=== PATIENT | male | born 1955 | race Caucasian/White ===

== ENCOUNTER 2020-04-05 16:04 | Inpatient (IN) | payer MEDICARE, OTHER ==
[2020-04-05] MEDS ORDERED: Acetaminophen 325 MG Tab PO PRN (22:40)
[2020-04-05] MEDS ORDERED: Non-Formulary Medication 1 Each (Dulaglutide [Trulicity] 1.5 MG) SQ SCH (22:45)
[2020-04-06] MEDS: glipiZIDE 5 MG Tab.ER PO SCH (08:27)
[2020-04-06] MEDS: PARoxetine 20 MG Tab PO SCH (08:28)
[2020-04-06] MEDS: atorvaSTATin 10 MG Tab PO SCH (08:29)
[2020-04-06] MEDS: Lisinopril 5 MG Tab PO SCH (08:29)
[2020-04-06] MEDS: Dexamethasone 4 MG Tab PO SCH (08:31)
[2020-04-06] MEDS: metFORMIN 500 MG Tab PO SCH ×2 (08:32→19:23)
[2020-04-06] MEDS ORDERED: metFORMIN 500 MG Tab.ER ONE (08:38)
[2020-04-06] MEDS ORDERED: metFORMIN 500 MG Tab ONE (08:47)
[2020-04-06] MEDS ORDERED: Tuberculin, PPD 5 Units/0.1 ML 1 ML MDV IDERM ONE (10:24)
[2020-04-06] MEDS ORDERED: Acetaminophen 325 MG Tab PO PRN (12:04)
--- NOTE | 2020-04-06 12:30 | PCM.HP.2 ---
H&P History of Present Illness - General Date of Service: 04/06/20 Admit Problem/Dx: Admission Diagnosis/Problem Admission Diagnosis/Problem Weakness - History of Present Illness Initial Comments - Free Text/Narative: pt admitted to [facility] for swingbed status after admission in [place], [place] on for diagnosis of covid. review of [facility] admission shows pt has significant deconditioning while inpt. pt recieved remdesivir and steroids at [facility] as well. pt states he feels much improved from peak of symptoms but still weak and looks forward to PT and OT and discharge home when able. pt states intermittent SOB with exertion. denies fever, chills, nausea, vomiting, headache, pain. medical history significant for diabetes, PE currently on warfarin for anticoagulation, CKD, sleep apnea, depression - Related Data Allergies/Adverse Reactions: Allergies Allergy/AdvReac Type Severity Reaction Status Date / Time No Known Allergies Allergy Verified 05/13/19 10:09 Home Medications: Home Meds Brimonidine [Alphagan 0.2% Ophth Soln] 1 drop TOP Q12H 09/01/15 [History] Warfarin [Coumadin] 1 tab PO ASDIRECTED 09/01/15 [History] metFORMIN HCl [Glucophage] 1,000 mg PO BID 09/01/15 [History] metroNIDAZOLE [metroNIDAZOLE 0.75% Cream] 1 dose TOP ASDIRECTED 09/01/15 [History] raNITIdine HCL [Zantac 75] 75 mg PO ASDIRECTED PRN 09/01/15 [History] Lisinopril 1 tab PO DAILY 07/11/17 [History] PARoxetine [Paxil] 1 tab PO DAILY 07/11/17 [History] atorvaSTATin [Lipitor] 1 tab PO DAILY 07/11/17 [History] glipiZIDE [Glipizide ER] 2 tab PO DAILY 07/11/17 [History] Dulaglutide [Trulicity] 1.5 mg SQ WEEKLY 05/13/19 [History] Meloxicam [Mobic] 15 mg PO DAILY PRN #10 tablet 05/13/19 [Rx] Acetaminophen [Tylenol] 1,000 mg PO Q6H PRN 04/05/20 [History] Pantoprazole Sodium [Protonix] 20 mg PO DAILY 04/05/20 [History] dexAMETHasone [Dexamethasone] 6 mg PO DAILY 04/05/20 [History] Past Medical History HEENT History: Reports: Glaucoma, Impaired Vision Respiratory History: Reports: PE, Sleep Apnea Other Respiratory History: cpap Gastrointestinal History: Reports: GERD Musculoskeletal History: Reports: Back Pain, Chronic, Other (See Below) Other Musculoskeletal History: L side face fx r leg fx Neurological History: Reports: Brain Injury, Concussion, Head Trauma Psychiatric History: Reports: Mood Swings Endocrine/Metabolic History: Reports: Diabetes, Type II, Obesity/BMI 30+ Hematologic History: Reports: Anticoagulation Therapy Dermatologic History: Reports: Other (See Below) Other Dermatologic History: Brown spot r anglican - Infectious Disease History Infectious Disease History: Reports: Chicken Pox, Other (See Below) Other Infectious Disease History: COVID-19 - Past Surgical History Head Surgeries/Procedures: Reports: None HEENT Surgical History: Reports: None Respiratory Surgical History: Reports: None GI Surgical History: Reports: Esophageal Dilatation Endocrine Surgical History: Reports: None Neurological Surgical History: Reports: Other (See Below) Musculoskeletal Surgical History: Reports: Knee Replacement, Other (See Below) Other Musculoskeletal Surgeries/Procedures:: surgery to right foot Dermatological Surgical History: Reports: None Social & Family History - Tobacco Use Tobacco Use Status *Q: Never Tobacco User Second Hand Smoke Exposure: No - Caffeine Use Caffeine Use: Reports: None - Recreational Drug Use Recreational Drug Use: No H&P Review of Systems - Review of Systems: Review Of Systems: Comprehensive ROS is negative, except as noted in HPI. Exam - Exam Exam: See Below - Vital Signs Vital Signs: Last Vital Signs Temp 95.6 F L 04/06/20 08:00 Pulse 93 04/06/20 08:00 Resp 20 04/06/20 08:00 BP 142/97 H 04/06/20 08:29 Pulse Ox 99 04/06/20 08:00 Weight: 200 lb - Exam Quality Assessment: Supplemental Oxygen General: Alert, Oriented, Cooperative HEENT: PERRLA, Conjunctiva Clear, Pupils Reactive Lungs: Clear to Auscultation, Normal Respiratory Effort Cardiovascular: Regular Rate, Regular Rhythm, Normal S1, Normal S2 Back Exam: Normal Inspection, Full Range of Motion Extremities: Normal Inspection, Normal Range of Motion, Non-Tender, No Pedal Edema Peripheral Pulses: 2+: Radial (L), Radial (R), Dorsalis Pedis (L), Dorsalis Pedis (R) Skin: Warm, Dry, Intact Neuro Extensive - Mental Status: Alert, Oriented x3, Normal Mood/Affect, Normal Cognition, Memory Intact - Patient Data Lab Results Last 24 hrs: Laboratory Results - last 24 hr 04/06/20 Range/Units 07:22 POC Glucose 222 H (74-110) mg/dL Sepsis Event Note - Evaluation Sepsis Screening Result: No Definite Risk - Focused Exam Vital Signs: Vital Signs Temp Pulse Pulse Resp BP BP BP 04/06/20 08:29 142/97 H 04/06/20 08:00 95.6 F L 93 20 142/97 H 04/06/20 04:00 97.5 F 90 20 122/82 Pulse Ox 04/06/20 08:29 04/06/20 08:00 99 04/06/20 04:00 96 - Problem List (1) COVID-19 SNOMED Code(s): 192247569 ICD Code: U07.1 - COVID-19 Status: Acute Current Visit: Yes (2) Physical deconditioning SNOMED Code(s): 44009608963828 ICD Code: R53.81 - OTHER MALAISE Status: Acute Current Visit: Yes (3) Diabetes SNOMED Code(s): 68832579 ICD Code: E11.9 - TYPE 2 DIABETES MELLITUS WITHOUT COMPLICATIONS Status: Acute Current Visit: Yes Qualifiers: Diabetes mellitus type: type 2 Diabetes mellitus buttermaker continuous churn insulin use: with buttermaker continuous churn use Diabetes mellitus complication status: without complication Qualified Code(s): E11.9 - Type 2 diabetes mellitus without complications; Z79.4 - intermediate (current) use of insulin Problem List Initiated/Reviewed/Updated: Yes Orders Last 24hrs: Active Orders 24 hr Category Date Time Status Admission Diagnosis [ADT] Routine ADT 04/05/20 22:18 Active Patient Status [ADT] Routine ADT 04/05/20 22:32 Active Ambulate [RC] QSHIFT Care 04/05/20 22:32 Active Antiembolic Devices [RC] .Routine Care 04/05/20 22:37 Active Blood Glucose Check, Bedside [RC] TIDMEALS Care 04/05/20 22:37 Active May Shower [RC] ASDIRECTED Care 04/05/20 22:32 Active Oxygen Therapy [RC] DAILY Care 04/05/20 22:32 Active Up With Assistance [RC] ASDIRECTED Care 04/05/20 22:32 Active VTE/DVT Education [RC] Per Unit Routine Care 04/05/20 22:32 Active Vital Signs [RC] Care 04/05/20 22:32 Active CULTURE MRSA SURVEY [RM] Routine Lab 04/06/20 09:15 Received Acetaminophen [TylenoL] Med 04/06/20 12:04 Active 650 mg PO Q4H PRN Dulaglutide [Trulicity] Med 04/05/20 22:45 Pending 1.5 mg SQ WEEKLY PARoxetine [Paxil] Med 04/06/20 08:00 Active 10 mg PO DAILY Warfarin [Coumadin] Med 04/06/20 18:00 Active 5 mg PO DAILY@1800 atorvaSTATin [Lipitor] Med 04/06/20 08:00 Active 10 mg PO DAILY dexAMETHasone Med 04/06/20 08:00 Active 6 mg PO DAILY glipiZIDE [Glucotrol XL] Med 04/06/20 08:00 Active 20 mg PO DAILY lisinopriL [Prinivil] Med 04/06/20 08:00 Active 2.5 mg PO DAILY metFORMIN [Glucophage] Med 04/06/20 08:00 Active 1,000 mg PO BID Antiembolic Hose [OM.PC] Per Unit Routine Oth 04/05/20 22:34 Ordered Resuscitation Status Routine Resus Stat 04/05/20 22:32 Ordered Medication Orders Acetaminophen (Tylenol) 650 mg PO Q4H PRN PRN Reason: Pain Atorvastatin Calcium (Lipitor) 10 mg PO DAILY [facility] Last Admin: 04/06/20 08:29 Dose: 10 mg Documented by: EMA Dexamethasone (Dexamethasone) 6 mg PO DAILY [facility] Last Admin: 04/06/20 08:31 Dose: 6 mg Documented by: EMA Glipizide (Glucotrol Xl) 20 mg PO DAILY [facility] Last Admin: 04/06/20 08:27 Dose: 20 mg Documented by: EMA Lisinopril (Prinivil) 2.5 mg PO DAILY [facility] Last Admin: 04/06/20 08:29 Dose: 2.5 mg Documented by: EMA Metformin HCl (Glucophage) 1,000 mg PO BID [facility] Last Admin: 04/06/20 08:32 Dose: 1,000 mg Documented by: EMA Non-Formulary Medication (Dulaglutide [Trulicity]) 1.5 mg SQ WEEKLY [facility] Paroxetine HCl (Paxil) 10 mg PO DAILY [facility] Last Admin: 04/06/20 08:28 Dose: 10 mg Documented by: EMA Warfarin Sodium (Coumadin) 5 mg PO DAILY@1800 [facility] Stop: 04/07/20 18:01 Assessment/Plan Comment:: plan: PT OT for deconditioned state O2 as needed continue decadron through weekend - Mortality Measure Prognosis:: Good
[2020-04-06] MEDS ORDERED: Insulin Aspart 100 Units/ML 3 ML Pen SUBCUT ONE ×2 (16:51→18:10)
[2020-04-06] MEDS ORDERED: Warfarin 5 MG Tab PO SCH (18:00)
[2020-04-06] MEDS ORDERED: Glucagon,Human Recombinant 1 MG Vial IM PRN (18:23)
[2020-04-06] MEDS ORDERED: 50% Dextrose in Water 50 ML Syringe IVPUSH PRN (18:23)
[2020-04-06] MEDS ORDERED: Insulin NPH/Insulin Regular,Human 70-30 100 Units/ML 10 ML Vial SUBCUT ONE (20:36)
[2020-04-07] MEDS: glipiZIDE 5 MG Tab.ER PO SCH (08:22)
[2020-04-07] MEDS: atorvaSTATin 10 MG Tab PO SCH (08:22)
[2020-04-07] MEDS: metFORMIN 500 MG Tab PO SCH ×2 (08:23→19:58)
[2020-04-07] MEDS: PARoxetine 20 MG Tab PO SCH (08:23)
[2020-04-07] MEDS: Lisinopril 5 MG Tab PO SCH (08:35)
[2020-04-07] MEDS: Dexamethasone 4 MG Tab PO SCH (12:19)
[2020-04-07] MEDS ORDERED: Insulin Aspart 100 Units/ML 3 ML Pen SUBCUT ONE ×2 (17:20→20:53)
[2020-04-07] MEDS ORDERED: Glucagon,Human Recombinant 1 MG Vial IM PRN (17:35)
[2020-04-07] MEDS ORDERED: 50% Dextrose in Water 50 ML Syringe IVPUSH PRN (17:35)
[2020-04-07] MEDS ORDERED: Warfarin 2.5 MG Tab PO SCH (18:00)
[2020-04-08] MEDS: Lisinopril 5 MG Tab PO SCH (08:36)
[2020-04-08] MEDS: PARoxetine 20 MG Tab PO SCH (08:37)
[2020-04-08] MEDS: metFORMIN 500 MG Tab PO SCH ×2 (08:38→19:39)
[2020-04-08] MEDS: atorvaSTATin 10 MG Tab PO SCH (08:39)
[2020-04-08] MEDS: glipiZIDE 5 MG Tab.ER PO SCH (08:52)
[2020-04-08] MEDS ORDERED: Warfarin 5 MG Tab ONE (17:42)
[2020-04-08] MEDS: Warfarin 5 MG Tab PO SCH (17:44)
--- NOTE | 2020-04-08 18:13 | PCM.PN ---
- General Info Date of Service: 04/08/20 Subjective Update: Patient improving but continues to be very weak and fatigued. He notes some continued shortness of breath. Functional Status: Reports: Pain Controlled, Tolerating Diet - Review of Systems General: Reports: Weakness, Fatigue HEENT: Reports: No Symptoms Pulmonary: Reports: Shortness of Breath Cardiovascular: Reports: No Symptoms Gastrointestinal: Reports: Decreased Appetite Genitourinary: Reports: No Symptoms Musculoskeletal: Reports: Other (aches of the body) - Patient Data Vitals - Most Recent: Last Vital Signs Temp 36.4 C 04/08/20 08:00 Pulse 89 04/08/20 08:00 Resp 20 04/08/20 08:00 BP 121/73 04/08/20 08:36 Pulse Ox 95 04/08/20 09:31 Weight - Most Recent: 90.718 kg Lab Results Last 24 Hours: Laboratory Results - last 24 hr 04/08/20 04/08/20 04/08/20 Range/Units 07:31 11:05 15:45 PT 20.1 H (9.0-11.5) sec INR 2.0 (1.0-3.5) POC Glucose 107 182 H (74-110) mg/dL 04/08/20 Range/Units 17:32 PT (9.0-11.5) sec INR (1.0-3.5) POC Glucose 263 H (74-110) mg/dL Med Orders - Current: Current Medications Acetaminophen (Tylenol) 650 mg PO Q4H PRN PRN Reason: Pain Atorvastatin Calcium (Lipitor) 10 mg PO DAILY [facility] Last Admin: 04/08/20 08:39 Dose: 10 mg Documented by: Dextrose/Water (Dextrose 50% In Water) 50 ml IVPUSH ASDIRECTED PRN PRN Reason: Hypoglycemia Glipizide (Glucotrol Xl) 20 mg PO DAILY [facility] Last Admin: 04/08/20 08:52 Dose: 20 mg Documented by: Glucagon (Glucagen) 1 mg IM ASDIRECTED PRN PRN Reason: Hypoglycemia Lisinopril (Prinivil) 2.5 mg PO DAILY [facility] Last Admin: 04/08/20 08:36 Dose: 2.5 mg Documented by: Metformin HCl (Glucophage) 1,000 mg PO BID [facility] Last Admin: 04/08/20 08:38 Dose: 1,000 mg Documented by: Non-Formulary Medication (Dulaglutide [Trulicity]) 1.5 mg SQ WEEKLY [facility] Paroxetine HCl (Paxil) 10 mg PO DAILY [facility] Last Admin: 04/08/20 08:37 Dose: 10 mg Documented by: Warfarin Sodium (Coumadin) 5 mg PO DAILY@1800 [facility] Last Admin: 04/08/20 17:44 Dose: 5 mg Documented by: Discontinued Medications Acetaminophen (Tylenol) 1,000 mg PO Q6H PRN PRN Reason: Pain (moderate 4-6) Dexamethasone (Dexamethasone) 6 mg PO DAILY [facility] Last Admin: 04/07/20 12:19 Dose: Not Given Documented by: Dextrose/Water (Dextrose 50% In Water) 50 ml IVPUSH ASDIRECTED PRN PRN Reason: Hypoglycemia Glucagon (Glucagen) 1 mg IM ASDIRECTED PRN PRN Reason: Hypoglycemia Insulin Aspart (Novolog) 5 unit SUBCUT ONETIME ONE Stop: 04/06/20 16:52 Last Admin: 04/06/20 17:00 Dose: 5 units Documented by: Insulin Aspart (Novolog) 5 unit SUBCUT ONETIME ONE Stop: 04/06/20 18:11 Last Admin: 04/06/20 18:15 Dose: 1,815 units Documented by: Insulin Aspart (Novolog) 5 unit SUBCUT ONETIME ONE Stop: 04/07/20 17:21 Last Admin: 04/07/20 17:20 Dose: 5 units Documented by: Insulin Aspart (Novolog) 10 unit SUBCUT ONETIME ONE Stop: 04/07/20 20:54 Last Admin: 04/07/20 21:00 Dose: 10 units Documented by: Insulin Human Isoph/Insulin Regular (Novolin 70-30) 5 unit SUBCUT ONETIME ONE Stop: 04/06/20 20:37 Last Admin: 04/06/20 20:30 Dose: 5 units Documented by: Metformin HCl (Glucophage Xr) Confirm Administered Dose 500 mg .ROUTE .STK-MED ONE Stop: 04/06/20 08:39 Last Admin: 04/06/20 12:06 Dose: Not Given Documented by: Metformin HCl (Glucophage) Confirm Administered Dose 500 mg .ROUTE .STK-MED ONE Stop: 04/06/20 08:48 Last Admin: 04/06/20 12:06 Dose: Not Given Documented by: Tuberculin PPD (Aplisol) 5 unit IDERM ONETIME ONE Stop: 04/06/20 10:25 Last Admin: 04/06/20 10:25 Dose: 5 unit Documented by: Warfarin Sodium (Coumadin) 5 mg PO DAILY@1800 [facility] Stop: 04/06/20 18:01 Last Admin: 04/06/20 17:00 Dose: 5 mg Documented by: Warfarin Sodium (Coumadin) 2.5 mg PO DAILY@1800 [facility] Stop: 04/07/20 18:01 Last Admin: 04/07/20 17:21 Dose: 2.5 mg Documented by: Warfarin Sodium (Coumadin) Confirm Administered Dose 5 mg .ROUTE .STK-MED ONE Stop: 04/08/20 17:43 Last Admin: 04/08/20 17:45 Dose: Not Given Documented by: - Exam General: Alert, Oriented HEENT: Pupils Equal, Pupils Reactive, EOMI Neck: Supple Lungs: Decreased Breath Sounds Cardiovascular: Regular Rate, Regular Rhythm GI/Abdominal Exam: Normal Bowel Sounds, Soft Extremities: Normal Inspection Sepsis Event Note - Evaluation Sepsis Screening Result: No Definite Risk - Focused Exam Vital Signs: Vital Signs Temp Pulse Pulse Resp BP BP Pulse Ox 04/08/20 09:31 04/08/20 08:36 121/73 04/08/20 08:00 36.4 C 89 98 20 121/73 95 Pulse Ox 04/08/20 09:31 95 04/08/20 08:36 04/08/20 08:00 - Problem List & Annotations (1) COVID-19 SNOMED Code(s): 757085574 Code(s): U07.1 - COVID-19 Status: Acute Priority: High (2) Physical deconditioning SNOMED Code(s): 42142867506555 Code(s): R53.81 - OTHER MALAISE Status: Acute Priority: High - Problem List Review Problem List Initiated/Reviewed/Updated: Yes - My Orders Last 24 Hours: My Active Orders 04/08/20 18:00 Warfarin [Coumadin] 5 mg PO DAILY@1800 - Plan Plan:: plan: PT OT for deconditioned state O2 as needed continue decadron through weekend Counseled on continued PT/OT. Discussed improved oxygenation and continued monitoring of desaturation and breathing. Discussed continued decadron use and f/u management.
[2020-04-09] MEDS: Lisinopril 5 MG Tab PO SCH (08:20)
[2020-04-09] MEDS: PARoxetine 20 MG Tab PO SCH (08:20)
[2020-04-09] MEDS: glipiZIDE 5 MG Tab.ER PO SCH (08:21)
[2020-04-09] MEDS: atorvaSTATin 10 MG Tab PO SCH (08:22)
[2020-04-09] MEDS: metFORMIN 500 MG Tab PO SCH ×2 (08:22→20:04)
[2020-04-09] MEDS: Warfarin 5 MG Tab PO SCH (17:27)
[2020-04-10] MEDS: Lisinopril 5 MG Tab PO SCH (08:39)
[2020-04-10] MEDS: PARoxetine 20 MG Tab PO SCH (08:40)
[2020-04-10] MEDS: glipiZIDE 5 MG Tab.ER PO SCH (08:41)
[2020-04-10] MEDS: metFORMIN 500 MG Tab PO SCH (08:43)
[2020-04-10] MEDS: atorvaSTATin 10 MG Tab PO SCH (08:45)
[2020-04-10] MEDS ORDERED: Nystatin Crm 30 GM Tube TOP SCH (12:00)
[2020-04-10 15:39] VITALS: BP 128/81; PULSE 100
--- NOTE | 2020-05-09 11:04 | PCM.DCSUM1 ---
Discharge Summary - Discharge Data Discharge Date: 05/10/20 Discharge Disposition: Home, Self-Care 01 Condition: Fair - Referral to Home Health Primary Care Physician: PCP None - Discharge Diagnosis/Problem(s) (1) COVID-19 SNOMED Code(s): 722316776 ICD Code: U07.1 - COVID-19 Status: Acute Priority: High (2) Physical deconditioning SNOMED Code(s): 28125713548838 ICD Code: R53.81 - OTHER MALAISE Status: Acute Priority: High - Patient Summary/Data Consults: Consultations 04/06/20 13:31 OT Evaluation and Treatment [CONS] Routine Please Evaluate and Treat. OT Reason for Consult: ADL's This query below is only for informational purposes and is not editable. Admission Diagnosis/Problem: Weakness PT Evaluation and Treatment [CONS] Routine Please Evaluate and Treat. PT Reason for Consult: Strengthening This query below is only for informational purposes and is not editable. Admission Diagnosis/Problem: Weakness - Patient Instructions Diet: Usual Diet as Tolerated Activity: As Tolerated Driving: May Drive Today - Discharge Plan Home Medications: Home Meds Brimonidine [Alphagan 0.2% Ophth Soln] 1 drop TOP Q12H 09/01/15 [History] Warfarin [Coumadin] 1 tab PO ASDIRECTED 09/01/15 [History] metFORMIN HCl [Glucophage] 1,000 mg PO BID 09/01/15 [History] metroNIDAZOLE [metroNIDAZOLE 0.75% Cream] 1 dose TOP ASDIRECTED 09/01/15 [History] raNITIdine HCL [Zantac 75] 75 mg PO ASDIRECTED PRN 09/01/15 [History] Lisinopril 1 tab PO DAILY 07/11/17 [History] PARoxetine [Paxil] 1 tab PO DAILY 07/11/17 [History] atorvaSTATin [Lipitor] 1 tab PO DAILY 07/11/17 [History] glipiZIDE [Glipizide ER] 2 tab PO DAILY 07/11/17 [History] Dulaglutide [Trulicity] 1.5 mg SQ WEEKLY 05/13/19 [History] Meloxicam [Mobic] 15 mg PO DAILY PRN #10 tablet 05/13/19 [Rx] Acetaminophen [Tylenol] 1,000 mg PO Q6H PRN 04/05/20 [History] Pantoprazole Sodium [Protonix] 20 mg PO DAILY 04/05/20 [History] dexAMETHasone [Dexamethasone] 6 mg PO DAILY 04/05/20 [History] Patient Handouts: How to Use Compression Stockings, Airborne Precautions, [id number], Contact Precautions, [id number], Droplet Precautions, [id number], Venous Thromboembolism Prevention - Discharge Summary/Plan Comment DC Time >30 min.: No Discharge Summary/Plan Comment: Routine discharge instructions. Follow up with PCP in the next week as directed. F/u as needed if any further shortness of breath or symptoms. - Patient Data Vitals - Most Recent: Last Vital Signs Temp 36.2 C 04/10/20 08:00 Pulse 100 04/10/20 08:00 Resp 20 04/10/20 08:00 BP 121/85 04/10/20 08:39 Pulse Ox 95 04/09/20 20:00 Weight - Most Recent: 90.718 kg Med Orders - Current: Current Medications Discontinued Medications Acetaminophen (Tylenol) 1,000 mg PO Q6H PRN PRN Reason: Pain (moderate 4-6) Acetaminophen (Tylenol) 650 mg PO Q4H PRN PRN Reason: Pain Atorvastatin Calcium (Lipitor) 10 mg PO DAILY [facility] Last Admin: 04/10/20 08:45 Dose: 10 mg Documented by: Dexamethasone (Dexamethasone) 6 mg PO DAILY [facility] Last Admin: 04/07/20 12:19 Dose: Not Given Documented by: Dextrose/Water (Dextrose 50% In Water) 50 ml IVPUSH ASDIRECTED PRN PRN Reason: Hypoglycemia Dextrose/Water (Dextrose 50% In Water) 50 ml IVPUSH ASDIRECTED PRN PRN Reason: Hypoglycemia Glipizide (Glucotrol Xl) 20 mg PO DAILY [facility] Last Admin: 04/10/20 08:41 Dose: 20 mg Documented by: Glucagon (Glucagen) 1 mg IM ASDIRECTED PRN PRN Reason: Hypoglycemia Glucagon (Glucagen) 1 mg IM ASDIRECTED PRN PRN Reason: Hypoglycemia Insulin Aspart (Novolog) 5 unit SUBCUT ONETIME ONE Stop: 04/06/20 16:52 Last Admin: 04/06/20 17:00 Dose: 5 units Documented by: Insulin Aspart (Novolog) 5 unit SUBCUT ONETIME ONE Stop: 04/06/20 18:11 Last Admin: 04/06/20 18:15 Dose: 1,815 units Documented by: Insulin Aspart (Novolog) 5 unit SUBCUT ONETIME ONE Stop: 04/07/20 17:21 Last Admin: 04/07/20 17:20 Dose: 5 units Documented by: Insulin Aspart (Novolog) 10 unit SUBCUT ONETIME ONE Stop: 04/07/20 20:54 Last Admin: 04/07/20 21:00 Dose: 10 units Documented by: Insulin Human Isoph/Insulin Regular (Novolin 70-30) 5 unit SUBCUT ONETIME ONE Stop: 04/06/20 20:37 Last Admin: 04/06/20 20:30 Dose: 5 units Documented by: Lisinopril (Prinivil) 2.5 mg PO DAILY [facility] Last Admin: 04/10/20 08:39 Dose: 2.5 mg Documented by: Metformin HCl (Glucophage) 1,000 mg PO BID [facility] Last Admin: 04/10/20 08:43 Dose: 1,000 mg Documented by: Metformin HCl (Glucophage Xr) Confirm Administered Dose 500 mg .ROUTE .STK-MED ONE Stop: 04/06/20 08:39 Last Admin: 04/06/20 12:06 Dose: Not Given Documented by: Metformin HCl (Glucophage) Confirm Administered Dose 500 mg .ROUTE .STK-MED ONE Stop: 04/06/20 08:48 Last Admin: 04/06/20 12:06 Dose: Not Given Documented by: Non-Formulary Medication (Dulaglutide [Trulicity]) 1.5 mg SQ WEEKLY [facility] Nystatin (Nystatin Crm) 1 gm TOP QID [facility] Last Admin: 04/10/20 15:30 Dose: Not Given Documented by: Paroxetine HCl (Paxil) 10 mg PO DAILY [facility] Last Admin: 04/10/20 08:40 Dose: 10 mg Documented by: Tuberculin PPD (Aplisol) 5 unit IDERM ONETIME ONE Stop: 04/06/20 10:25 Last Admin: 04/06/20 10:25 Dose: 5 unit Documented by: Warfarin Sodium (Coumadin) 5 mg PO DAILY@1800 [facility] Stop: 04/06/20 18:01 Last Admin: 04/06/20 17:00 Dose: 5 mg Documented by: Warfarin Sodium (Coumadin) 2.5 mg PO DAILY@1800 [facility] Stop: 04/07/20 18:01 Last Admin: 04/07/20 17:21 Dose: 2.5 mg Documented by: Warfarin Sodium (Coumadin) 5 mg PO DAILY@1800 [facility] Last Admin: 04/09/20 17:27 Dose: 5 mg Documented by: Warfarin Sodium (Coumadin) Conf[facility] Stop: 04/08/20 17:43 Last Admin: 04/08/20 17:45 Dose: Not Given Documented by:
== END 2020-04-10 11:30 | disposition home or self-care (01) | DRG 947 ==
LOC: LB.MS 20:58 → UNDOADMIN 20:58 → LB.MS 22:32
PROVIDERS: ADMIT Registered Nurse; ATTEND Family Medicine
DX: R53.1 Weakness (principal); U07.1 COVID-19; H54.7 Unspecified visual loss; H40.9 Unspecified glaucoma; G47.30 Sleep apnea, unspecified; M54.9 Dorsalgia, unspecified; G89.29 Other chronic pain; E66.9 Obesity, unspecified; E11.9 Type 2 diabetes mellitus without complications; K21.9 Gastro-esophageal reflux disease without esophagitis; Z96.659 Presence of unspecified artificial knee joint; N18.9 Chronic kidney disease, unspecified; Z79.01 Long term (current) use of anticoagulants; Z79.899 Other long term (current) drug therapy; Z79.84 Long term (current) use of oral hypoglycemic drugs; Z86.711 Personal history of pulmonary embolism; Z79.4 Long term (current) use of insulin; Z68.29 Body mass index [BMI] 29.0-29.9, adult
CPT/HCPCS: 36415; 82947; 82962; 85610; 86580; 97110-GP; 97112-GP; 97116-GP; 97161-GP; 97530-GP; 99304; 99307; A9270-GY; J1815-GY; J8540